=== PATIENT | female | born 1965 ===

== ENCOUNTER 2018-11-27 07:54 | Day surgery (SDC) | payer BC ==
[2018-11-27] MEDS: Ringers Lactate 1,000 ML IV ONE ×2 (07:54→08:43)
--- OUTSIDE RECORDS SUMMARY | 2018-11-27 08:04 | XMS REPORT ---
:1965 Author Organization [employer] Care Team Providers Name Role Phone Aleah Castellanosh Provider Role Unavailable Allergies, Adverse Reactions, Alerts Substance Reaction Event Type N.K.D.A. Info Not Available Non Drug Allergy Problems Problem Type Condition Code Onset Dates Condition Status Assessment Need for Tdap vaccination Z23 Active Assessment Elevated BP without diagnosis of R03.0 Active hypertension Assessment Well adult health check Z00.00 Active Problem Adult BMI 36.0-36.9 kg/sq m Z68.36 Active Assessment Screening for colon cancer Z12.11 Active Assessment Need for influenza vaccination Z23 Active Assessment Adult BMI 36.0-36.9 kg/sq m Z68.36 Active Assessment Screening mammogram, encounter for Z12.31 Active Medications No Known Medications Results No Known Results Immunizations Vaccine Administration Date Afluria November 20, 2018 TDAP > 7 Years-Adacel November 20, 2018 Summary Purpose [employer] Submission
[2018-11-27] MEDS ORDERED: Ringers Lactate 1,000 ML IV ONE (09:56)
[2018-11-27] MEDS ORDERED: PROPOFOL 200 MG/20 ML VIAL IV ONE ×2 (11:01)
[2018-11-27] MEDS ORDERED: LIDOCAINE 1% MPF 5 ML VIAL ONE (11:01)
--- NOTE | 2018-11-27 11:12 | ENDO RPT ---
[address], [address] COLONOSCOPY PROCEDURE REPORT EXAM DATE: 11/27/2018 PATIENT NAME: Nikki Hughes MR #: [id number] BIRTHDATE: 1965 ATTENDING: Kike Barksdale MD STATUS: outpatient SPECIAL DELIVERY CLERK: Roula Tirado and Ela Patterson RN INDICATIONS: The patient is a 53 yr old Female here for a colonoscopy due to colon cancer screening PROCEDURE PERFORMED: Colonoscopy MEDICATIONS: Per Anesthesia. ESTIMATED BLOOD LOSS: None CONSENT: The patient understands the risks and benefits of the procedure and understands that these risks include, but are not limited to: sedation, allergic reaction, infection, perforation and/or bleeding. Alternative means of evaluation and treatment include, among others: physical exam, x-rays, and/or surgical intervention. The patient elects to proceed with this endoscopic procedure. DESCRIPTION OF PROCEDURE: During intra-op preparation period all mechanical medical equipment was checked for proper function. Hand hygiene and appropriate measures for infection prevention was taken. Procedure, possible complications, alternatives including, but not limited to possibility of bleeding, perforation, tear, infection, sepsis, need for surgery, need for blood transfusion, were explained to the patient. After the risks, benefits and alternatives of the procedure were thoroughly explained, Informed consent was verified, confirmed and timeout was successfully executed by the treatment team. The patient was placed in the left lateral position. A digital rectal exam was performed and revealed external hemorrhoids. After appropriate level of anesthesia, the scope was passed. The [id number] ([id number]) endoscope was introduced through the anus and advanced to the cecum, which was identified by transillumination from the light source, the appendix, and the ileocecal valve. The quality of the prep was good. The instrument was then slowly withdrawn as the colon was fully examined. Scope withdrawal time was . COLON FINDINGS: Small internal and external hemorrhoids were found. Retroflexed views revealed no abnormalities. The scope was then completely withdrawn from the patient and the procedure terminated. ADVERSE EVENTS: There were no complications. IMPRESSIONS: Small internal and external hemorrhoids RECOMMENDATIONS: follow-up: office 1-2 week(s) RECALL: Return in 5-10 year(s) for Colonoscopy. Kike Barksdale MD eSigned: Kike Barksdale MD 11/27/2018 11:12 AM cc: Silas Castellanos MD CPT CODES: ICD9 CODES: PATIENT NAME: Nikki Hughes MR#: [id number]
== END 2018-11-27 11:53 | disposition home or self-care (01) ==
LOC: OR 07:54
PROVIDERS: ATTEND Surgery
PROC: 0DJD8ZZ Inspection of Lower Intestinal Tract, Via Natural or Artificial Opening Endoscopic (ICD-10-PCS; principal; 2018-11-27 09:45)
DX: Z12.11 Encounter for screening for malignant neoplasm of colon (principal); K64.8 Other hemorrhoids; K64.4 Residual hemorrhoidal skin tags
CPT/HCPCS: J2704